=== PATIENT | male | born 1945 | race Caucasian/White ===

== ENCOUNTER 2016-08-29 17:24 | Emergency (ER) | payer MEDICARE, OTHER | END 2016-08-29 19:21 | disposition home or self-care (01) | DX: M25.461 Effusion, right knee (principal); M25.561 Pain in right knee; W17.2XXA Fall into hole, initial encounter; Y93.89 Activity, other specified; Y92.89 Other specified places as the place of occurrence of the external cause; Y99.8 Other external cause status; M17.11 Unilateral primary osteoarthritis, right knee ==

== ENCOUNTER 2016-09-10 10:53 | Outpatient (CLI) | payer MEDICARE, OTHER | END 2016-09-10 10:54 | disposition home or self-care (01) | DX: S83.211A Bucket-handle tear of medial meniscus, current injury, right knee, initial encounter (principal); S83.261A Peripheral tear of lateral meniscus, current injury, right knee, initial encounter; S83.411A Sprain of medial collateral ligament of right knee, initial encounter; M17.11 Unilateral primary osteoarthritis, right knee; M25.461 Effusion, right knee ==

== ENCOUNTER → 2017-07-20 | Outpatient (CLI) | payer MEDICARE, OTHER ==
[2017-07-20 13:38] LABS: BASOPHILS % (AUTO) 0.8 %; EOSINOPHILS # (AUTO) 0.1 10^3/uL (0.0-0.7); EOSINOPHILS % (AUTO) 2.4 %; HCT - HEMATOCRIT 48.3 % (42.0-52.0); HGB - HEMOGLOBIN 16.1 g/dL (14.0-18.0); LYMPHOCYTES % (AUTO) 21.2 %; MEAN CORPUSCULAR HGB CONC 33.4 g/dL (32.0-36.0); MEAN CORPUSCULAR VOLUME 86.8 fL (80.0-94.0); MEAN PLATELET VOLUME 7.6 fL (7.4-11.4); MONOCYTES # (AUTO) 0.5 10^3/uL (0.0-1.0); MONOCYTES % (AUTO) 9.8 %; NEUTROPHILS # (AUTO) 3.1 10^3/uL (1.5-6.6); NEUTROPHILS % (AUTO) 65.8 %; NUCLEATED RED BLOOD CELLS AUTO 0.1 /100WBC; RED BLOOD COUNT 5.57 10^6/uL (4.70-6.10); RED CELL DISTRIBUTION WIDTH 14.2 % (12.0-15.0); UNCORRECTED WHITE BLOOD COUNT 4.7 x10^3/uL; WHITE BLOOD COUNT 4.7 x10^3/uL (4.8-10.8)
[2017-07-20 14:08] LABS: ALBUMIN/GLOBULIN RATIO 1.3 (1.0-2.2); BILIRUBIN,TOTAL 1.3 mg/dL (0.2-1.0); BUN - BLOOD UREA NITROGEN 21 mg/dL (6-20); CALCIUM 9.3 mg/dL (8.5-10.3); CARBON DIOXIDE - CO2 28 mmol/L (21-32); CHLORIDE 103 mmol/L (101-111); CHOL/HDL RATIO 5.4 (<5.0); CHOLESTEROL 185 mg/dL; CREATININE 1.1 mg/dL (0.6-1.2); GFR - MDRD 66 (>89); GLUCOSE 78 mg/dL (70-100); HDL CHOLESTEROL 34 mg/dL; LDL/HDL RATIO 3.2 (<3.6); POTASSIUM 4.3 mmol/L (3.5-5.0); SODIUM 140 mmol/L (135-145); TOTAL PROTEIN 7.4 g/dL (6.7-8.2); TRIGLYCERIDES 215 mg/dL; VLDL CHOLESTEROL 43 mg/dL
== END ==
LOC: LAB.R 09:09
PROVIDERS: ATTEND Internal Medicine
DX: K58.9 Irritable bowel syndrome, unspecified (principal); I75.029 Atheroembolism of unspecified lower extremity; E78.5 Hyperlipidemia, unspecified; R03.0 Elevated blood-pressure reading, without diagnosis of hypertension; Z72.89 Other problems related to lifestyle
CPT/HCPCS: 80053; 80061; 85025; 86803

== ENCOUNTER 2018-08-02 17:16 | Outpatient (CLI) | payer MEDICARE ==
--- NOTE | 2018-08-03 09:27 | XRAY Report ---
Reason: RIB PAIN, LEFT SIDED Procedure Date: 08/02/2018 Accession Number: [id number] / [id number] Procedure: XR - Ribs w/PA Chest LT CPT Code: FULL RESULT: EXAM: LEFT RIB RADIOGRAPHY EXAM DATE: 08/02/2018 05:16 PM. CLINICAL HISTORY: Rib pain, left-sided. COMPARISON: None. TECHNIQUE: 1 view of the chest and 2 views of the ribs. FINDINGS: Bones: Normal. No fracture or bone lesion. Lungs: No focal opacities. No pneumothorax. No pleural effusions. Mediastinum: Heart and mediastinal contours are unremarkable. Other: No finding is made in the region marked with a BB. IMPRESSION: Normal chest and rib radiography. RADIA
== END 2018-08-02 23:59 | disposition home or self-care (01) ==
LOC: DI 17:16
PROVIDERS: ATTEND Internal Medicine
DX: R07.81 Pleurodynia (principal)

== ENCOUNTER 2019-02-05 16:27 | Emergency (ER) | payer MEDICARE ==
--- NOTE | 2019-02-05 16:59 | ED Physician Documentation ---
PD HPI FOCAL NEURO - Stated complaint Stated Complaint: LT SIDE OF FACE AND ARM NUMB - Chief complaint Chief Complaint: Neuro - History obtained from History obtained from: Patient - History of Present Illness Timing - onset: Today (The patient awoke this morning at 4 AM with a feeling of left sided headache and states he had a feeling of "a waterfall rushing through my head" on the left side. He noticed a feeling of numbness in the left face and the left arm. He felt slightly weak on the left arm. He denied any visual changes. He denied any trouble speaking. He is continued with some of the feeling of numbness in the left arm and face through the day. Headache is been wafting through the day. He denies any injury. He denies any head cold symptoms. He has not had any prior similar episodes.) Timing - duration: Days (08/22) Timing - details: Abrupt onset, Still present Severity of deficit: Moderate Weakness: No: Face, Arm, Hand, Leg Numbness: Face, Arm, Hand, Left. No: Leg Associated symptoms: Headache (left sided temporal area and side of face as well), Nausea / vomiting, Neck pain. No: Seizure, Syncope, Head injury, Back pain Contributing factors: negative: Anticoagulated, Vascular dz Baseline status: positive: A&OX3, ambulatory, indep Similar symptoms before: Has not had sx before Recently seen: Not recently seen Review of Systems Constitutional: denies: Fever, Chills, Myalgias Ears: denies: Loss of hearing, Ear pain, Drainage/discharge Nose: denies: Rhinorrhea / runny nose, Congestion Throat: denies: Sore throat Cardiac: denies: Chest pain / pressure, Palpitations Respiratory: denies: Dyspnea, Cough GI: denies: Abdominal Pain, Nausea, Vomiting, Diarrhea Skin: denies: Rash, Lesions Neurologic: reports: Numbness. denies: Generalized weakness, Focal weakness, Near syncope, Confused, Headache, Head injury PD PAST MEDICAL HISTORY - Past Medical History Cardiovascular: None Respiratory: None Neuro: None Endocrine/Autoimmune: None - Allergies Allergies/Adverse Reactions: Allergies Allergy/AdvReac Type Severity Reaction Status Date / Time Penicillins Allergy Hives Verified 02/05/19 16:32 - Social History Does the pt smoke?: No Smoking Status: Never smoker - Family History Family history: reports: CVA PD ED PE NORMAL - Vitals Vital signs reviewed: Yes - General General: Alert and oriented X 3, No acute distress, Well developed/nourished - HEENT HEENT: Pharynx benign - Neck Neck: Supple, no meningeal sign, No adenopathy - Cardiac Cardiac: RRR, No murmur - Respiratory Respiratory: Clear bilaterally - Abdomen Abdomen: Soft, Non tender - Derm Derm: Normal color, Warm and dry - Extremities Extremities: No deformity, No tenderness to palpate, Normal ROM s pain, No edema, No calf tenderness / cord - Neuro Neuro: Alert and oriented X 3, shrimp trawler 2-12 intact, No motor deficit, No sensory deficit, Normal speech Eye Opening: Spontaneous Motor: Obeys Commands Verbal: Oriented GCS Score: 15 - Psych Psych: Normal mood NIHSS - Level of Consciousness Level of consciousness: (0) Alert, Keenly responsive LOC Questions: (0) Answers both Q's correct LOC Commands: (0) Performs both correctly - Gaze Best Gaze: (0) Normal - Visual Visual: (0) No loss - Facial Palsy Facial Palsy: (0) Normal, symmetrical movement - Motor Arms (both separate) Motor Arm (right): (0) No drift Motor Arm (left): (1) Drift - Motor Legs (both separate) Motor Leg (right): (0) No drift Motor Leg (left): (0) No drift - Limb Ataxia Limb Ataxia: (0) Absent - Sensory Sensory: (1) Vaoh-hh-whunkxst loss (left face and arm) - Best Language Best Language: (0) No aphasia - Dysarthria Dysarthria: (0) Normal - Extinction and Inattention (formally neg Extinction and inattention: (0) No abnormality - Total Score/Results Total Score/Result: 2 Results - Vitals Vitals: Vital Signs - 24 hr 02/05/19 02/05/19 02/05/19 16:30 17:00 17:09 Temperature 36.6 C Heart Rate 61 56 L Respiratory 18 10 L 18 Rate Blood Pressure 175/86 H 150/87 H O2 Saturation 98 96 02/05/19 02/05/19 18:03 20:06 Temperature 36.5 C Heart Rate 59 L 61 Respiratory 11 L 12 Rate Blood Pressure 166/86 H 178/96 H O2 Saturation 100 98 Oxygen O2 Source Room air - Labs Labs: Laboratory Tests 02/05/19 02/05/19 02/05/19 17:23 17:23 17:23 WBC 5.0 RBC 5.40 Hgb 15.4 Hct 47.7 MCV 88.3 MCH 28.5 MCHC 32.3 RDW 13.4 Plt Count 163 MPV 9.0 Neut # (Auto) 3.0 Lymph # (Auto) 1.[address] [place] # (Auto) 0.6 Eos # (Auto) 0.2 Baso # (Auto) 0.0 Absolute Nucleated RBC 0.00 Nucleated RBC % 0.0 ESR 3 Sodium 139 Potassium 4.1 Chloride 106 Carbon Dioxide 23 Anion Gap 10.0 BUN 14 Creatinine 0.9 Estimated GFR (MDRD) 83 L Glucose 117 H Calcium 8.8 Magnesium 2.3 Total Bilirubin 0.8 AST 13 ALT 20 Alkaline Phosphatase 79 Total Protein 7.2 Albumin 4.0 Globulin 3.2 Albumin/Globulin Ratio 1.3 Lipase 32 - Rads (name of study) head CT Radiology: Prelim report reviewed, Discussed with rads (no acute process) head/neck angio Radiology: Prelim report reviewed, Discussed with rads (no acute process; no significant stenoses (50% or so)) PD MEDICAL DECISION MAKING - ED course Complexity details: re-evaluated patient (he is feeling better regarding headache and his numbness is improved. He wants to go home. I talked with him about MRI for further eval and neuro checks overnight. He declines and wishes to be discharged. ), considered differential (left headache and left arm/face numbness without weakness. Consider small CVA or lacune type vs vascular headache like migraine. Given meds for headache. ), d/w patient Departure - Departure Disposition: 01 Home, Self Care Clinical Impression: Left-sided headache, Lt facial numbness Condition: Stable Record reviewed to determine appropriate education?: Yes Instructions: ED Cephalgia Unspecified Follow-Up: Pee Hyatt MD [Primary Care Provider] - Comments: Aspirin daily. Tylenol ibuprofen if needed for headache and pains. Is not cl ear the cause of your headache and facial and arm numbness at this time. No signs of bleeding or aneurysms or tumors on CT scan. It does not sound as much strokelike per se. It may be a migraine or other similar headache. An MRI would be a bit more accurate to detect small stroke or such. Follow-up with your primary care if not fully improved over the next couple of days. Return if worsening. Discharge Date/Time: 02/05/19 20:12
[2019-02-05] MEDS ORDERED: SODIUM CHLORIDE 0.9% 1,000 ML IV ONE (17:14)
[2019-02-05] MEDS ORDERED: ONDANSETRON 4 MG/2 ML VIAL IVP STA (17:16)
[2019-02-05] MEDS ORDERED: MORPHINE 2 MG/ML CARPUJECT IVP STA (17:16)
[2019-02-05] MEDS ORDERED: IOVERSOL 320 100 ML VIAL IVP ONE ×3 (17:31→18:29)
[2019-02-05 17:52] LABS: BASOPHILS % (AUTO) 0.8 %; EOSINOPHILS # (AUTO) 0.2 10^3/uL (0.0-0.7); EOSINOPHILS % (AUTO) 4.6 %; HGB - HEMOGLOBIN 15.4 g/dL (14.0-18.0); LYMPHOCYTES # (AUTO) 1.1 10^3/uL (1.5-3.5); LYMPHOCYTES % (AUTO) 22.4 %; MEAN CORPUSCULAR HEMOGLOBIN 28.5 pg (27.0-31.0); MEAN CORPUSCULAR HGB CONC 32.3 g/dL (32.0-36.0); MEAN CORPUSCULAR VOLUME 88.3 fL (80.0-94.0); MONOCYTES # (AUTO) 0.6 10^3/uL (0.0-1.0); MONOCYTES % (AUTO) 11.1 %; NEUTROPHILS % (AUTO) 60.7 %; PLT - PLATELET COUNT 163 10^3/uL (130-450); RED CELL DISTRIBUTION WIDTH 13.4 % (12.0-15.0)
[2019-02-05 17:54] LABS: ALBUMIN/GLOBULIN RATIO 1.3 (1.0-2.2); BILIRUBIN,TOTAL 0.8 mg/dL (0.2-1.0); CALCIUM 8.8 mg/dL (8.5-10.3); CREATININE 0.9 mg/dL (0.6-1.2); MAGNESIUM 2.3 mg/dL (1.7-2.8); TOTAL PROTEIN 7.2 g/dL (6.7-8.2)
--- NOTE | 2019-02-05 17:58 | CT Report ---
Reason: left headache and left arm numbness Procedure Date: 02/05/2019 Accession Number: [id number] / [id number] Procedure: CT - Head W/O Stroke Protocol CPT Code: FULL RESULT: EXAM: CT HEAD EXAM DATE: 02/05/2019 05:45 PM. CLINICAL HISTORY: Left headache and left arm numbness. COMPARISON: None. TECHNIQUE: Multiaxial CT images were obtained from the foramen magnum to the vertex. Reformats: Sagittal and coronal. IV contrast: None. In accordance with CT protocol optimization, one or more of the following dose reduction techniques were utilized for this exam: automated exposure control, adjustment of mA and/or KV based on patient size, or use of iterative reconstructive technique. FINDINGS: Parenchyma: No intraparenchymal hemorrhage. No evidence of mass, midline shift, or CT findings of acute infarction. Ramirez-white differentiation is distinct. Extraaxial Spaces: Normal for age. No subdural or epidural collections identified. Ventricles: Normal in size and position. Sinuses and Orbits: Imaged paranasal sinuses, orbits, and mastoids show no significant abnormality. Bones: No evidence of fracture or calvarial defect. Other: None. IMPRESSION: Normal head CT. RADIA The above critical test findings were discussed with Lisandro Rico by Dr. Blaine Kelley at 05:57 PM on 02/05/2019.
--- NOTE | 2019-02-05 18:29 | CT Report ---
Reason: L arm numbness, L neck pain/LONG Procedure Date: 02/05/2019 Accession Number: [id number] / [id number] Procedure: CT - ANGIO NECK W/WO CPT Code: FULL RESULT: EXAM: CT ANGIOGRAM HEAD AND NECK. EXAM DATE: 02/05/2019 06:09 PM. CLINICAL HISTORY: 73-year-old presenting with left-sided headache and left arm numbness. Evaluate for intracranial pathology. COMPARISON: Noncontrast CT head 02/05/2019. TECHNIQUE: Routine axial helical CTA imaging was performed from the aortic arch through the [place]. Reconstructions: Routine multiplanar 3D MIP reconstructions. IV contrast: 80 cc Optiray 320. NASCET Criteria are used for stenosis measurements. In accordance with CT protocol optimization, one or more of the following dose reduction techniques were utilized for this exam: automated exposure control, adjustment of mA and/or KV based on patient size, or use of iterative reconstructive technique. FINDINGS: CT ANGIOGRAM HEAD AND NECK: There is minimal atherosclerotic plaque involving the aortic arch. The left common carotid artery arises from the right brachiocephalic artery. Visually, subclavian arteries appear patent. RIGHT: Common Carotid Artery: Patent without significant stenosis. Carotid Bulb: There is mild atherosclerotic plaque at the bifurcation and siphon. Stenosis at the bifurcation by NASCET criteria: No significant stenosis. Internal Carotid Artery: The cervical ICA appears patent with no high-grade stenosis or definite dissection seen. Minimal atherosclerotic aortic plaque involving the cavernous ICA segment with no high-grade stenosis seen. No evidence of aneurysm along the intracranial ICA. External Carotid Artery: Unremarkable. Vertebral Artery: Patent without significant stenosis. No evidence of dissection. No aneurysm. Anterior Cerebral Artery: Patent without significant stenosis, aneurysm, or vascular malformation. Middle Cerebral Artery: Patent without significant stenosis, aneurysm, or vascular malformation. Posterior Cerebral Artery: Patent without significant stenosis, aneurysm, or vascular malformation. Posterior Communicating Artery: Patent. No aneurysm. LEFT: Common Carotid Artery: Patent without significant stenosis. Carotid Bulb: There is mild atherosclerotic plaque at the bifurcation and siphon. Stenosis at the bifurcation by NASCET criteria: No significant stenosis. Internal Carotid Artery: The cervical ICA appears patent with no high-grade stenosis or definite dissection seen. Minimal atherosclerotic aortic plaque involving the cavernous ICA segment with no high-grade stenosis seen. No evidence of aneurysm along the intracranial ICA. External Carotid Artery: Unremarkable. Vertebral Artery: There is atherosclerotic aortic plaque involving the origin of the left vertebral artery with between 70-80% stenosis. Anterior Cerebral Artery: Patent without significant stenosis, aneurysm, or vascular malformation. Middle Cerebral Artery: Patent without significant stenosis, aneurysm, or vascular malformation. Posterior Cerebral Artery: Patent without significant stenosis, aneurysm, or vascular malformation. Posterior Communicating Artery: Patent. No aneurysm. CENTRAL: Anterior Communicating Artery: Patent. No aneurysm. Basilar Artery: Patent without significant stenosis. No aneurysm. DURAL VENOUS SINUSES AND MAJOR CENTRAL VEINS: Patent. OTHER: The visualized pharynx and larynx appear normal. Major salivary glands appear normal. Thyroid gland appears normal. No cervical lymphadenopathy or necrotic lymph nodes seen. Soft tissues of the neck appear normal. Pleural parenchymal scarring of the visualized lung apices with dependent atelectatic changes. No acute fracture or traumatic subluxation of the cervical spine. Multilevel degenerative changes. No suspicious osseous lesion. IMPRESSION: CT ANGIOGRAM NECK: 1. There is atherosclerotic plaque involving the origin of the left vertebral artery with between 70-80% stenosis. 2. Otherwise, the arteries of the neck appear patent with no definite additional high-grade stenosis or definite dissection seen. CT ANGIOGRAM HEAD: 1. No large vessel occlusion. 2. No aneurysm. No significant stenosis. RADIA The call report notification system was initiated by Dr. Barry Silva at 06:28 PM on 02/05/2019. The above call report findings were discussed with Lisandro Rico by Dr. Barry Silva at 06:31 PM on 02/05/2019.
--- NOTE | 2019-02-05 18:29 | CT Report ---
Reason: left headache and left arm numbness Procedure Date: 02/05/2019 Accession Number: [id number] / [id number] Procedure: CT - ANGIO HEAD W CPT Code: FULL RESULT: EXAM: CT ANGIOGRAM HEAD AND NECK. EXAM DATE: 02/05/2019 06:09 PM. CLINICAL HISTORY: 73-year-old presenting with left-sided headache and left arm numbness. Evaluate for intracranial pathology. COMPARISON: Noncontrast CT head 02/05/2019. TECHNIQUE: Routine axial helical CTA imaging was performed from the aortic arch through the [place]. Reconstructions: Routine multiplanar 3D MIP reconstructions. IV contrast: 80 cc Optiray 320. NASCET Criteria are used for stenosis measurements. In accordance with CT protocol optimization, one or more of the following dose reduction techniques were utilized for this exam: automated exposure control, adjustment of mA and/or KV based on patient size, or use of iterative reconstructive technique. FINDINGS: CT ANGIOGRAM HEAD AND NECK: There is minimal atherosclerotic plaque involving the aortic arch. The left common carotid artery arises from the right brachiocephalic artery. Visually, subclavian arteries appear patent. RIGHT: Common Carotid Artery: Patent without significant stenosis. Carotid Bulb: There is mild atherosclerotic plaque at the bifurcation and siphon. Stenosis at the bifurcation by NASCET criteria: No significant stenosis. Internal Carotid Artery: The cervical ICA appears patent with no high-grade stenosis or definite dissection seen. Minimal atherosclerotic aortic plaque involving the cavernous ICA segment with no high-grade stenosis seen. No evidence of aneurysm along the intracranial ICA. External Carotid Artery: Unremarkable. Vertebral Artery: Patent without significant stenosis. No evidence of dissection. No aneurysm. Anterior Cerebral Artery: Patent without significant stenosis, aneurysm, or vascular malformation. Middle Cerebral Artery: Patent without significant stenosis, aneurysm, or vascular malformation. Posterior Cerebral Artery: Patent without significant stenosis, aneurysm, or vascular malformation. Posterior Communicating Artery: Patent. No aneurysm. LEFT: Common Carotid Artery: Patent without significant stenosis. Carotid Bulb: There is mild atherosclerotic plaque at the bifurcation and siphon. Stenosis at the bifurcation by NASCET criteria: No significant stenosis. Internal Carotid Artery: The cervical ICA appears patent with no high-grade stenosis or definite dissection seen. Minimal atherosclerotic aortic plaque involving the cavernous ICA segment with no high-grade stenosis seen. No evidence of aneurysm along the intracranial ICA. External Carotid Artery: Unremarkable. Vertebral Artery: There is atherosclerotic aortic plaque involving the origin of the left vertebral artery with between 70-80% stenosis. Anterior Cerebral Artery: Patent without significant stenosis, aneurysm, or vascular malformation. Middle Cerebral Artery: Patent without significant stenosis, aneurysm, or vascular malformation. Posterior Cerebral Artery: Patent without significant stenosis, aneurysm, or vascular malformation. Posterior Communicating Artery: Patent. No aneurysm. CENTRAL: Anterior Communicating Artery: Patent. No aneurysm. Basilar Artery: Patent without significant stenosis. No aneurysm. DURAL VENOUS SINUSES AND MAJOR CENTRAL VEINS: Patent. OTHER: The visualized pharynx and larynx appear normal. Major salivary glands appear normal. Thyroid gland appears normal. No cervical lymphadenopathy or necrotic lymph nodes seen. Soft tissues of the neck appear normal. Pleural parenchymal scarring of the visualized lung apices with dependent atelectatic changes. No acute fracture or traumatic subluxation of the cervical spine. Multilevel degenerative changes. No suspicious osseous lesion. IMPRESSION: CT ANGIOGRAM NECK: 1. There is atherosclerotic plaque involving the origin of the left vertebral artery with between 70-80% stenosis. 2. Otherwise, the arteries of the neck appear patent with no definite additional high-grade stenosis or definite dissection seen. CT ANGIOGRAM HEAD: 1. No large vessel occlusion. 2. No aneurysm. No significant stenosis. RADIA The call report notification system was initiated by Dr. Barry Silva at 06:28 PM on 02/05/2019. The above call report findings were discussed with Lisandro Rico by Dr. Barry Silva at 06:31 PM on 02/05/2019.
[2019-02-05] MEDS ORDERED: DEXAMETHASONE 10 MG/ML VIAL PO STA (19:38)
[2019-02-05] MEDS ORDERED: CHERRY SYRUP 10 ML UDC PO ONE (19:38)
[2019-02-05 20:07] VITALS: BP 178/96
== END 2019-02-05 20:12 | disposition home or self-care (01) ==
LOC: ED 16:27
DX: R51 Headache (principal); R20.0 Anesthesia of skin; R29.702 NIHSS score 2; Z82.3 Family history of stroke
CPT/HCPCS: 36415; 70450; 70496; 70498; 80053; 83690; 83735; 85025; 85651; 93005; 96360; 99283; 99284; A9270; Q9967

== ENCOUNTER 2019-02-11 16:46 | Outpatient (CLI) | payer MEDICARE ==
--- NOTE | 2019-02-12 08:44 | MRI Report ---
Reason: HEADACHE,CERVICAL Procedure Date: 02/11/2019 Accession Number: [id number] / [id number] Procedure: MRI - Brain W/O CPT Code: FULL RESULT: EXAM: MRI BRAIN WITHOUT CONTRAST EXAM DATE: 02/11/2019 05:08 PM. CLINICAL HISTORY: Headache and neck pain. Recent report of left arm numbness. COMPARISON: No previous brain MRI. TECHNIQUE: Multiplanar, multisequence T1-weighted and fluid-sensitive MR sequences of the brain were performed. Sequences optimized for routine evaluation. Other: None. IV Contrast: None. FINDINGS: Brain Volume: Normal for age. Parenchyma/Dura: No restricted diffusion to suggest acute or recent ischemic infarct. No cerebral hemorrhage, mass-effect, midline shift or abnormal subdural fluid collection. Mild multifocal cerebral white matter T2 hyperintense signal changes. These findings are nonspecific but most consistent with changes of aging and mild chronic microangiopathy. Ventricles/Cisterns: No hydrocephalus. No abnormal extra-axial fluid collection or hemorrhage. Orbits: Symmetric and unremarkable. Sella [place]: No space-occupying mass. IAC: Grossly symmetric and unremarkable allowing for the inherent limitations of noncontrast imaging technique. Vasculature: Normal signal flow void is seen in the major arterial structures at the skull base. Sinuses: Mild multifocal paranasal sinus mucosal thickening, mostly ethmoid and maxillary. Bones: No focal pathologic appearing marrow signal changes. Other: None. IMPRESSION: Mild chronic-appearing changes of aging. No acute abnormality. Mild paranasal sinus mucosal thickening. RADIA
--- NOTE | 2019-02-12 09:42 | MRI Report ---
Reason: HEADACHE,CERVICAL Procedure Date: 02/11/2019 Accession Number: [id number] / [id number] Procedure: MRI - Cervical Spine W/O CPT Code: FULL RESULT: EXAM: MRI CERVICAL SPINE WITHOUT CONTRAST EXAM DATE: 02/11/2019 05:44 PM. CLINICAL HISTORY: Headache and neck pain. COMPARISONS: No prior cervical spine MRI. TECHNIQUE: Multiplanar, multisequence T1-weighted and fluid-sensitive sequences of the cervical spine without contrast. Other: None. FINDINGS: Neurologic Structures: The visualized posterior fossa structures are unremarkable. No focal cervical cord signal abnormality. Alignment: No scoliosis or focal subluxation. Bone Marrow: Cervical vertebral body heights are maintained. No acute marrow edema. Interspace Levels/Facets: C1-C2: Unremarkable. C2-C3: Mild to moderate facet arthropathy. Minimally narrowed disk space. No central stenosis or focal disk extrusion. Patent foramina. C3-C4: Mild disk degeneration. Minimal central stenosis. Shallow midline posterior disk protrusion. Minimal to mild right and mild to moderate left side facet arthropathy. Mild bilateral uncinate process spurring and hypertrophy. Mild to moderate right and moderate to severe left bony foraminal stenosis. C4-C5: Moderate disk degeneration. Mild central stenosis. Broad-based posterior disk bulge. Ventral thecal sac effacement. Minimal if any ventral cord flattening by disk. Left greater than right uncinate process spurring and facet arthropathy. Foraminal stenosis is mild to moderate on the right and moderate to severe on the left. C5-C6: Moderate disk degeneration. Mild to moderate central stenosis. Broad-based posterior disk bulge with mild marginal osteophytic spurring, disk/osteophyte complex is eccentric to the left. Minimal facet arthropathy. Uncinate process spurring and hypertrophy is present on the left. Patent right neural foramen. Moderate to severe bony foraminal stenosis on the left. C6-C7: Moderate disk degeneration. Left greater than right uncinate process spurring and hypertrophy. Essentially unremarkable facets. Mild central stenosis anteriorly on the left. Mild to moderate left lateral recess stenosis. Foraminal stenosis is minimal on the right but at least moderate on the left. C7-T1: Minimal disk degeneration. Patent central canal. No focal disk herniation. Foraminal stenosis from uncinate process hypertrophy is minimal to mild on the right and mild to moderate on the left. Musculature: No acute edema. Mild diffuse fatty atrophy. Other: No focal prevertebral soft tissue thickening. IMPRESSION: 1. Moderately prominent chronic multilevel hypertrophic degenerative cervical spinal spondylosis. 2. No focal spinal cord signal abnormality. 3. Central canal stenosis at multiple levels, most prominent at C4-C5 and left greater than right at C5-C6 where there is also left lateral recess stenosis. 4. Chronic-appearing degenerative bony foraminal stenosis at multiple cervical levels, especially on the left at C3-C4 through C6-C7. 5. Disk degeneration is associated with posterior degenerative disk/osteophyte complexes at multiple levels, but there is no evidence for acute or focal extruded disk fragment. RADIA
== END 2019-02-11 16:47 | disposition home or self-care (01) ==
LOC: DI 16:46
PROVIDERS: ATTEND Family Medicine
DX: R51 Headache (principal); M47.812 Spondylosis without myelopathy or radiculopathy, cervical region; M50.21 Other cervical disc displacement, high cervical region; M48.02 Spinal stenosis, cervical region
CPT/HCPCS: 70551; 72141

== ENCOUNTER 2020-11-09 08:00 | Outpatient (CLI) | payer MEDICARE ==
[2020-11-09 11:33] LABS: BASOPHILS % (AUTO) 0.6 %; EOSINOPHILS # (AUTO) 0.2 10^3/uL (0.0-0.7); EOSINOPHILS % (AUTO) 3.7 %; HCT - HEMATOCRIT 51.9 % (42.0-52.0); HGB - HEMOGLOBIN 16.9 g/dL (14.0-18.0); LYMPHOCYTES # (AUTO) 1.1 10^3/uL (1.5-3.5); LYMPHOCYTES % (AUTO) 22.5 %; MEAN CORPUSCULAR HEMOGLOBIN 29.2 pg (27.0-31.0); MEAN CORPUSCULAR HGB CONC 32.6 g/dL (32.0-36.0); MEAN CORPUSCULAR VOLUME 89.8 fL (80.0-94.0); MEAN PLATELET VOLUME 9.9 fL (7.4-11.4); MONOCYTES # (AUTO) 0.4 10^3/uL (0.0-1.0); MONOCYTES % (AUTO) 8.7 %; NEUTROPHILS # (AUTO) 3.1 10^3/uL (1.5-6.6); NEUTROPHILS % (AUTO) 64.1 %; PLT - PLATELET COUNT 163 10^3/uL (130-450); RED BLOOD COUNT 5.78 10^6/uL (4.70-6.10); RED CELL DISTRIBUTION WIDTH 13.2 % (12.0-15.0); WHITE BLOOD COUNT 4.8 x10^3/uL (4.8-10.8)
[2020-11-09 12:34] LABS: ALBUMIN 4.5 g/dL (3.2-5.5); ALBUMIN/GLOBULIN RATIO 1.6 (1.0-2.2); BILIRUBIN,TOTAL 1.2 mg/dL (0.2-1.0); CALCIUM 9.3 mg/dL (8.5-10.3); CREATININE 0.9 mg/dL (0.6-1.2); POTASSIUM 4.2 mmol/L (3.5-5.0); TOTAL PROTEIN 7.4 g/dL (6.7-8.2)
[2020-11-09 12:38] LABS: THYROID STIMULATING HORMONE 3.27 uIU/mL (0.34-5.60)
== END 2020-11-09 23:59 | disposition home or self-care (01) ==
LOC: LAB.WCP 08:00
PROVIDERS: ATTEND Family Medicine
DX: R10.814 Left lower quadrant abdominal tenderness (principal); K52.9 Noninfective gastroenteritis and colitis, unspecified
CPT/HCPCS: 36415; 80053; 84443; 85025

== ENCOUNTER 2020-12-09 08:59 | Outpatient (CLI) | payer MEDICARE ==
--- NOTE | 2020-12-09 14:39 | XRAY Report ---
PROCEDURE: Chest 2 View X-Ray INDICATIONS: WHEEZING TECHNIQUE: 2 view(s) of the chest. COMPARISON: None. FINDINGS: Surgical changes and devices: None. Lungs and pleura: No pleural effusions or pneumothorax. Lungs are clear. Mediastinum: Mediastinal contours are normal. Heart size is normal. Bones and chest wall: No suspicious bony abnormalities. Soft tissues appear unremarkable. IMPRESSION: Chest without acute cardiopulmonary abnormalities. No focal airspace disease. Reviewed by: Daron Eubanks MD on 12/09/2020 1:37 PM MCKENNA Approved by: Daron Eubanks MD on 12/09/2020 1:37 PM AKDT Station ID: [id number]
== END 2020-12-09 09:00 | disposition home or self-care (01) ==
LOC: DI 08:59
PROVIDERS: ATTEND Family Medicine
DX: R06.2 Wheezing (principal)

== ENCOUNTER 2020-12-24 09:43 | Outpatient (CLI) | payer MEDICARE ==
[2020-12-24] MEDS ORDERED: IOPAMIDOL-300 100 ML VIAL ONE (09:49)
[2020-12-24] MEDS ORDERED: IOPAMIDOL-300 50 ML VIAL ONE (09:49)
[2020-12-24 10:19] LABS: CREATININE 0.9 mg/dL (0.6-1.2)
[2020-12-24] MEDS ORDERED: IOPAMIDOL-300 100 ML VIAL IVP ONE (11:11)
[2020-12-24] MEDS ORDERED: IOPAMIDOL-300 50 ML VIAL PO ONE (11:11)
--- NOTE | 2020-12-24 11:26 | CT Report ---
PROCEDURE: Abdomen/Pelvis W INDICATIONS: COLITIS CONTRAST: IV CONTRAST: Isovue 300 ml: 100 PO CONTRAST: Isovue 300 ml50 TECHNIQUE: After the administration of nonionic contrast, 5 mm thick sections acquired from the diaphragms to th e symphysis. 5 mm thick coronal and sagittal reformats were acquired. For radiation dose reduction, the following was used: automated exposure control, adjustment of mA and/or kV according to patient size. COMPARISON: 08/12/2015 abdomen/pelvis CT. FINDINGS: Image quality: Excellent. ABDOMEN: Lung bases: Lung bases are clear. Heart size is normal. Solid organs: Liver and spleen are normal in size and enhancement. Gallbladder appears normal Bili rebeka system is non dilated. Pancreas enhances normally. No adrenal nodules. Kidneys demonstrate nor mal size and enhancement, without hydronephrosis. Peritoneum and bowel: Bowel loops demonstrate normal wall thickness and caliber. No free fluid or a ir. Moderate colonic obstipation on the right and left, within the abdomen and pelvis. Nodes and vessels: No retroperitoneal or mesenteric adenopathy by size criteria. Aorta and inferior vena cava are normal in size. Miscellaneous: No ventral hernias. PELVIS: Genitourinary: Bladder wall thickness is normal. Miscellaneous: No inguinal hernias or adenopathy. Colonic obstipation. Bones: No suspicious bony lesions. No vertebral body compression fractures. IMPRESSION: There is moderate colonic obstipation on the right and left, within the abdomen and pelv is, but no sign of inflammation of the colon wall or development of diverticulitis. Reviewed by: Alex Robles MD on 12/24/2020 11:25 AM PDT Approved by: Alex Robles MD on 12/24/2020 11:25 AM PDT Station ID: [id number]
== END 2020-12-24 09:44 | disposition home or self-care (01) ==
LOC: LAB 09:43 → DI 09:44
PROVIDERS: ATTEND Family Medicine
DX: K52.9 Noninfective gastroenteritis and colitis, unspecified (principal); K59.00 Constipation, unspecified; Z91.041 Radiographic dye allergy status
CPT/HCPCS: 36415; 74177; 82565; Q9967

== ENCOUNTER 2021-01-20 09:55 | Day surgery (SDC) | payer MEDICARE ==
[2021-01-20] MEDS ORDERED: LACTATED RINGERS 1,000 ML IV ONE ×2 (10:20→12:33)
[2021-01-20] MEDS ORDERED: fentaNYL 250 MCG/5 ML VIAL ONE (11:49)
[2021-01-20] MEDS ORDERED: MIDAZOLAM 2 MG/2 ML VIAL ONE ×2 (11:49→11:59)
[2021-01-20 12:47] VITALS: BP 103/53
== END 2021-01-20 09:56 | disposition home or self-care (01) ==
LOC: SDS 09:55
PROVIDERS: ATTEND Surgery
PROC: 0DBP8ZZ Excision of Rectum, Via Natural or Artificial Opening Endoscopic (ICD-10-PCS; principal; 2021-01-20 11:15)
DX: R10.32 Left lower quadrant pain (principal); K62.1 Rectal polyp
CPT/HCPCS: 45380; J3010; J7120

== ENCOUNTER 2022-01-12 10:56 | Outpatient (CLI) | payer MEDICARE ==
[2022-01-12 17:51] LABS: BASOPHILS % (AUTO) 0.7 %; EOSINOPHILS # (AUTO) 0.1 10^3/uL (0.0-0.7); EOSINOPHILS % (AUTO) 1.9 %; HCT - HEMATOCRIT 50.2 % (42.0-52.0); HGB - HEMOGLOBIN 16.2 g/dL (14.0-18.0); LYMPHOCYTES # (AUTO) 1.1 10^3/uL (1.5-3.5); LYMPHOCYTES % (AUTO) 19.2 %; MEAN CORPUSCULAR HEMOGLOBIN 29.3 pg (27.0-31.0); MEAN CORPUSCULAR HGB CONC 32.3 g/dL (32.0-36.0); MEAN CORPUSCULAR VOLUME 90.9 fL (80.0-94.0); MEAN PLATELET VOLUME 9.6 fL (7.4-11.4); MONOCYTES # (AUTO) 0.5 10^3/uL (0.0-1.0); PLT - PLATELET COUNT 185 10^3/uL (130-450); RED BLOOD COUNT 5.52 10^6/uL (4.70-6.10); RED CELL DISTRIBUTION WIDTH 13.6 % (12.0-15.0); WHITE BLOOD COUNT 5.8 x10^3/uL (4.8-10.8)
[2022-01-12 18:09] LABS: ALBUMIN 4.6 g/dL (3.2-5.5); ALBUMIN/GLOBULIN RATIO 1.6 (1.0-2.2); CALCIUM 9.1 mg/dL (8.5-10.3); CREATININE 0.9 mg/dL (0.6-1.2); POTASSIUM 4.7 mmol/L (3.5-5.0); TOTAL PROTEIN 7.5 g/dL (6.7-8.2)
[2022-01-12 18:26] LABS: THYROID STIMULATING HORMONE 2.86 uIU/mL (0.34-5.60)
[2022-01-12 18:31] LABS: FERRITIN 107.8 ng/mL (23.9-336.2)
== END 2022-01-12 10:57 | disposition home or self-care (01) ==
LOC: LAB.N 10:56
PROVIDERS: ATTEND Family Medicine
DX: R03.0 Elevated blood-pressure reading, without diagnosis of hypertension (principal); J45.909 Unspecified asthma, uncomplicated; R10.816 Epigastric abdominal tenderness; R79.89 Other specified abnormal findings of blood chemistry
CPT/HCPCS: 36415; 80053; 82728; 84443; 85025

== ENCOUNTER 2022-07-22 16:08 | Outpatient (CLI) | payer MEDICARE ==
[2022-07-22 16:44] LABS: BASOPHILS # (AUTO) 0.1 10^3/uL (0.0-0.1); BASOPHILS % (AUTO) 0.9 %; EOSINOPHILS # (AUTO) 0.1 10^3/uL (0.0-0.7); EOSINOPHILS % (AUTO) 2.3 %; HCT - HEMATOCRIT 51.2 % (42.0-52.0); HGB - HEMOGLOBIN 16.7 g/dL (14.0-18.0); LYMPHOCYTES # (AUTO) 1.5 10^3/uL (1.5-3.5); MEAN CORPUSCULAR HGB CONC 32.6 g/dL (32.0-36.0); MEAN PLATELET VOLUME 8.9 fL (7.4-11.4); MONOCYTES # (AUTO) 0.5 10^3/uL (0.0-1.0); MONOCYTES % (AUTO) 9.4 %; NEUTROPHILS # (AUTO) 3.2 10^3/uL (1.5-6.6); PLT - PLATELET COUNT 176 10^3/uL (130-450); RED BLOOD COUNT 5.75 10^6/uL (4.70-6.10); RED CELL DISTRIBUTION WIDTH 13.2 % (12.0-15.0); WHITE BLOOD COUNT 5.3 x10^3/uL (4.8-10.8)
[2022-07-22 16:59] LABS: ALBUMIN 4.4 g/dL (3.2-5.5); ALBUMIN/GLOBULIN RATIO 1.3 (1.0-2.2); BILIRUBIN,TOTAL 0.9 mg/dL (0.2-1.0); CREATININE 0.9 mg/dL (0.6-1.2); TOTAL PROTEIN 7.9 g/dL (6.7-8.2)
[2022-07-22 17:10] LABS: BILIRUBIN,URINE NEGATIVE (NEGATIVE); GLUCOSE, URINE (UA) NEGATIVE (NEGATIVE); KETONES,URINE (UA) NEGATIVE (NEGATIVE); LEUKOCYTE ESTERASE, URINE NEGATIVE (NEGATIVE); NITRITE,URINE NEGATIVE (NEGATIVE); OCCULT BLOOD,URINE NEGATIVE (NEGATIVE); PROTEIN,URINE NEGATIVE (NEGATIVE); UROBILINOGEN,URINE 0.2 (NORMAL) E.U./dL (NORMAL)
[2022-07-22 17:18] LABS: BACTERIA,URINE None Seen /HPF (None Seen); CLARITY,URINE CLEAR (CLEAR); RBC,URINE 0-5 /HPF (0-5); SQUAMOUS EPITHELIAL CELL,UR NONE SEEN (<= Few); WBC,URINE 0-3 /HPF (0-3)
--- NOTE | 2022-07-22 19:52 | XRAY Report ---
PROCEDURE: Thoracic Spine 3 View INDICATIONS: BACK PAIN THORACIC REGION TECHNIQUE: 3 views of the thoracic spine were acquired. COMPARISON: Chest radiographs 12/09/2020. FINDINGS: Bones: No fractures or dislocations. 12 pairs of ribs are noted, and appear intact where visualize d. Mild S-shaped curvature of the thoracic spine. Moderate multilevel degenerative changes present. Soft tissues: No paravertebral stripe thickening. IMPRESSION: No acute thoracic spine fracture visualized radiographically. If symptoms persist, CT or MRI may be h elpful for further evaluation. Reviewed by: Lalo Real MD on 07/22/2022 6:51 PM [facility] Approved by: Lalo Real MD on 07/22/2022 6:51 PM [facility] Station ID: [id number]
== END 2022-07-22 16:09 | disposition home or self-care (01) ==
LOC: DI 16:08
PROVIDERS: ATTEND Physician Assistant
DX: M54.6 Pain in thoracic spine (principal)
CPT/HCPCS: 36415; 80053; 81001; 83690; 85025; 87086

== ENCOUNTER 2023-05-08 07:20 | Emergency (ER) | payer MEDICARE ==
--- NOTE | 2023-05-08 07:33 | ED Physician Documentation ---
PD HPI SKIN - Stated complaint Stated Complaint: R ARM BITE - Chief complaint Chief Complaint: Wound - History obtained from History obtained from: Patient - History of Present Illness Timing - onset: Yesterday Timing - duration: Days (1) Timing - details: Gradual onset, Still present Location: RUE (he had been outside doing yard work and working with wood pile. No noted bite nor sting at the time. Has rounded area of tenderness and some redness into today. Concerned for insect bite, particularly deer tick per patient. No other symptoms except for some intermittent lightheadedness.) Quality / character: Burning, Swelling Associated symptoms: No: Fever, Myalgias Contributing factors: Insect bite /sting (he did not see insect and no abrupt pain like bee sting. Unclear the cause of the rash/spot.). No: Recent illness Review of Systems Constitutional: denies: Fever, Chills Neurologic: denies: Focal weakness, Numbness PD PAST MEDICAL HISTORY - Past Medical History Past Medical History: Yes Cardiovascular: None Respiratory: None Neuro: None Endocrine/Autoimmune: None GI: GERD : None HEENT: None Psych: None Musculoskeletal: None Derm: None - Past Surgical History Past Surgical History: Yes /[employer]: Endometrial ablation - Present Medications Home Medications: Ambulatory Orders Medication Instructions Recorded Confirmed Aspirin [Aspirin EC] 81 mg PO DAILY 01/19/21 05/08/23 Doxycycline Hyclate 100 mg PO BID 5 Days #10 cap 05/08/23 - Allergies Allergies/Adverse Reactions: Allergies Allergy/AdvReac Type Severity Reaction Status Date / Time Penicillins Allergy Hives Verified 05/08/23 07:25 - Social History Does the pt smoke?: No Smoking Status: Never smoker Does the pt drink ETOH?: Yes Does the pt have substance abuse?: No - Immunizations Immunizations are current?: Yes PD ED PE NORMAL - Vitals Vital signs reviewed: Yes - General General: Alert and oriented X 3, No acute distress, Well developed/nourished - Derm Derm: Normal color, Warm and dry Results - Vitals Vitals: Vital Signs - 24 hr 05/08/23 05/08/23 07:26 08:00 Temperature 36.3 C L 36.5 C Heart Rate 58 L 50 L Respiratory 16 12 Rate Blood Pressure 199/76 H 169/92 H O2 Saturation 99 100 Oxygen O2 Source Room air PD Medical Decision Making - ED course Complexity details: considered differential (unlikley to be signficant ricketsial infection starting. Could be early cellulitic. Or just lokal irritation from a bite. Can cover with Doxycycline as patient is very cocnerned about rickettsial infection, and the doxycyccline would be reasonable for early skin infection.), d/w patient Departure - Departure Disposition: 01 Home, Self Care Clinical Impression: Bite wound of forearm Condition: Stable Record reviewed to determine appropriate education?: Yes Prescriptions: Doxycycline Hyclate 100 mg PO BID 5 Days #10 cap Comments: I do not see any residual foreign body/bug parts in the wound. The small dark specks were small scabs. There is a little bit of warmth in the area and so could consider an early wound infection. We can treat with doxycycline twice daily for the next few days. Recheck if worsening. I sent new prescription to your preferred pharmacy, [facility]. Forms: PCP List Discharge Date/Time: 05/08/23 08:03
[2023-05-08] MEDS ORDERED: DOXYCYCLINE 100 MG TABLET PO STA (07:49)
[2023-05-08 08:01] VITALS: BP 169/92; O2SAT 100
== END 2023-05-08 08:03 | disposition home or self-care (01) ==
LOC: ED 07:20
DX: S50.861A Insect bite (nonvenomous) of right forearm, initial encounter (principal); W57.XXXA Bitten or stung by nonvenomous insect and other nonvenomous arthropods, initial encounter
CPT/HCPCS: 99282; 99283; A9270

== ENCOUNTER 2023-11-21 15:18 | Outpatient (CLI) | payer MEDICARE ==
[2023-11-21 15:32] LABS: BASOPHILS % (AUTO) 0.7 %; EOSINOPHILS # (AUTO) 0.1 10^3/uL (0.0-0.7); EOSINOPHILS % (AUTO) 2.2 %; HCT - HEMATOCRIT 48.7 % (42.0-52.0); HGB - HEMOGLOBIN 15.7 g/dL (14.0-18.0); LYMPHOCYTES # (AUTO) 1.1 10^3/uL (1.5-3.5); LYMPHOCYTES % (AUTO) 24.3 %; MEAN CORPUSCULAR HGB CONC 32.2 g/dL (32.0-36.0); MEAN PLATELET VOLUME 9.2 fL (7.4-11.4); MONOCYTES # (AUTO) 0.4 10^3/uL (0.0-1.0); NEUTROPHILS # (AUTO) 2.9 10^3/uL (1.5-6.6); NEUTROPHILS % (AUTO) 63.6 %; PLT - PLATELET COUNT 166 10^3/uL (130-450); RED BLOOD COUNT 5.41 10^6/uL (4.70-6.10); RED CELL DISTRIBUTION WIDTH 13.2 % (12.0-15.0); WHITE BLOOD COUNT 4.6 x10^3/uL (4.8-10.8)
[2023-11-21 15:33] LABS: BILIRUBIN,URINE NEGATIVE (NEGATIVE); GLUCOSE, URINE (UA) NEGATIVE (NEGATIVE); KETONES,URINE (UA) NEGATIVE (NEGATIVE); LEUKOCYTE ESTERASE, URINE NEGATIVE (NEGATIVE); NITRITE,URINE NEGATIVE (NEGATIVE); OCCULT BLOOD,URINE NEGATIVE (NEGATIVE); PROTEIN,URINE NEGATIVE (NEGATIVE); UROBILINOGEN,URINE 0.2 (NORMAL) E.U./dL (NORMAL)
[2023-11-21 15:39] LABS: BACTERIA,URINE Rare /HPF (None Seen); CLARITY,URINE CLEAR (CLEAR); MUCUS,URINE Few Strands; RBC,URINE None Seen /HPF (0-5); SQUAMOUS EPITHELIAL CELL,UR NONE SEEN (<= Few); WBC,URINE 0-3 /HPF (0-3)
[2023-11-21 15:47] LABS: ALBUMIN 4.3 g/dL (3.2-5.5); ALBUMIN/GLOBULIN RATIO 1.8 (1.0-2.2); ALKALINE PHOSPHATASE 101 IU/L (42-121); ALT ALANINE AMINOTRANSFERASE 12 IU/L (10-60); AST ASPARTATE AMINOTRANSFERASE 9 IU/L (10-42); BILIRUBIN,TOTAL 1.1 mg/dL (0.2-1.0); BUN - BLOOD UREA NITROGEN 18 mg/dL (6-20); CALCIUM 9.6 mg/dL (8.5-10.3); CARBON DIOXIDE - CO2 30 mmol/L (21-32); CHLORIDE 105 mmol/L (101-111); CHOL/HDL RATIO 4.6 (<5.0); CHOLESTEROL 146 mg/dL; CREATININE 0.9 mg/dL (0.6-1.3); GFR - MDRD 82 (>89); GLUCOSE 88 mg/dL (74-104); HDL CHOLESTEROL 32 mg/dL; LDL CHOLESTEROL,CALCULATED 91 mg/dL; LDL/HDL RATIO 2.8 (<3.6); POTASSIUM 4.1 mmol/L (3.5-4.5); SODIUM 139 mmol/L (135-145); TOTAL PROTEIN 6.7 g/dL (6.4-8.9); TRIGLYCERIDES 113 mg/dL (48-352); VLDL CHOLESTEROL 23 mg/dL
[2023-11-21 16:02] LABS: THYROID STIMULATING HORMONE 2.78 uIU/mL (0.34-5.60)
== END 2023-11-21 15:19 | disposition home or self-care (01) ==
LOC: LAB 15:18
PROVIDERS: ATTEND Family Medicine
DX: R80.9 Proteinuria, unspecified (principal)
CPT/HCPCS: 36415; 80053; 80061; 81001; 83721; 84443; 85025

== ENCOUNTER 2024-01-08 19:16 | Outpatient (CLI) | payer MEDICARE ==
--- NOTE | 2024-01-09 14:24 | Ultrasound Report ---
PROCEDURE: Arterial Duplex Lwr Ext BL INDICATIONS: PVD TECHNIQUE: Color and pulse Doppler interrogation was performed of both lower extremity arterial systems, with im age documentation. COMPARISON: None FINDINGS: Exam is markedly limited secondary to patient body habitus. Right lower extremity: Common femoral artery: 131 cm/sec, with triphasic flow. Deep femoral artery: 69.3 cm/sec, with biphasic/triphasic flow. Proximal superficial femoral artery: 141.6 cm/sec, with triphasic flow. Mid superficial femoral artery: 92.7 cm/sec, with biphasic/triphasic flow. Distal superficial femoral artery: 90.4 cm/sec, with triphasic flow. Popliteal artery: 79.3 cm/sec, with biphasic/triphasic flow. Posterior tibial artery: 36.3, 30.4, 125.3 cm/sec, with monophasic flow. Anterior tibial artery/dorsalis pedis: 59.5, 92.2, 81.2, cm/sec, with monophasic flow. Ramirez-scale imaging description: Scattered atherosclerotic plaque Left lower extremity: Common femoral artery: 114.9 cm/sec, with triphasic flow. Deep femoral artery: 69.2 cm/sec, with biphasic flow. Proximal superficial femoral artery: 123 cm/sec, with biphasic flow. Mid superficial femoral artery: 107.4 cm/sec, with biphasic flow. Distal superficial femoral artery: 74.4 cm/sec, with biphasic flow. Popliteal artery: 72.1 cm/sec, with triphasic/biphasic flow. Posterior tibial artery: 148.9, 119.4, 96.8 cm/sec, with monophasic/triphasic/triphasic flow. Anterior tibial artery/dorsalis pedis: 47.3, 133.8, 68.8, 42.7 cm/sec, with biphasic/monophasic/mono phasic/biphasic flow. Ramirez-scale imaging description: Scattered atherosclerotic plaque IMPRESSION: Exam is markedly limited secondary to patient body habitus. 1. Right lower extremity: -Multifocal stenoses in the posterior tibial artery and anterior tibial artery -[id number] arterial vasculature demonstrates multiphasic waveforms with no velocity shift to sug gest a hemodynamically significant stenosis. 2. Left lower extremity: -Multifocal stenoses in the posterior tibial artery and anterior tibial artery -[id number] arterial vasculature demonstrates multiphasic waveforms with no velocity shift to sug gest a hemodynamically significant stenosis. Reviewed by: Tarsha Medel MD on 01/09/2024 2:23 PM PDT Approved by: Tarsha Medel MD on 01/09/2024 2:23 PM PDT Station ID: [id number]
== END 2024-01-08 19:17 | disposition home or self-care (01) ==
LOC: DI 19:16
PROVIDERS: ATTEND Family Medicine
DX: I70.203 Unspecified atherosclerosis of native arteries of extremities, bilateral legs (principal)
CPT/HCPCS: 93925

== ENCOUNTER 2024-04-23 18:01 | Outpatient (CLI) | payer MEDICARE ==
[2024-04-23 18:19] LABS: BASOPHILS % (AUTO) 0.8 %; EOSINOPHILS % (AUTO) 2.9 %; HCT - HEMATOCRIT 48.5 % (42.0-52.0); HGB - HEMOGLOBIN 15.7 g/dL (14.0-18.0); LYMPHOCYTES % (AUTO) 22.8 %; MEAN CORPUSCULAR HEMOGLOBIN 30.1 pg (27.0-31.0); MEAN CORPUSCULAR HGB CONC 32.4 g/dL (32.0-36.0); MEAN CORPUSCULAR VOLUME 92.9 fL (80.0-94.0); MEAN PLATELET VOLUME 9.1 fL (7.4-11.4); MONOCYTES % (AUTO) 7.8 %; NEUTROPHILS % (AUTO) 65.2 %; PLT - PLATELET COUNT 175 10^3/uL (130-450); RED BLOOD COUNT 5.22 10^6/uL (4.70-6.10); RED CELL DISTRIBUTION WIDTH 12.8 % (12.0-15.0); WHITE BLOOD COUNT 6.2 x10^3/uL (4.8-10.8)
[2024-04-23 18:20] LABS: BASOPHILS # (AUTO) 0.1 10^3/uL (0.0-0.1); EOSINOPHILS # (AUTO) 0.2 10^3/uL (0.0-0.7); LYMPHOCYTES # (AUTO) 1.4 10^3/uL (1.5-3.5); MONOCYTES # (AUTO) 0.5 10^3/uL (0.0-1.0)
[2024-04-23 18:38] LABS: ALBUMIN 4.5 g/dL (3.2-5.5); ALBUMIN/GLOBULIN RATIO 1.7 (1.0-2.2); ALKALINE PHOSPHATASE 73 IU/L (42-121); ALT ALANINE AMINOTRANSFERASE 13 IU/L (10-60); AST ASPARTATE AMINOTRANSFERASE 11 IU/L (10-42); BILIRUBIN,TOTAL 0.9 mg/dL (0.2-1.0); BUN - BLOOD UREA NITROGEN 21 mg/dL (6-20); CALCIUM 9.1 mg/dL (8.5-10.3); CARBON DIOXIDE - CO2 28 mmol/L (21-32); CHLORIDE 104 mmol/L (101-111); CHOLESTEROL 147 mg/dL; CREATININE 1.4 mg/dL (0.6-1.3); CRP - C-REACTIVE PROTEIN < 0.5 mg/dL (<0.5); GFR - MDRD 49 (>89); GLUCOSE 84 mg/dL (74-104); HDL CHOLESTEROL 37 mg/dL; LDL CHOLESTEROL,CALCULATED 74 mg/dL; POTASSIUM 4.5 mmol/L (3.5-4.5); SODIUM 138 mmol/L (135-145); TOTAL PROTEIN 7.1 g/dL (6.4-8.9); TRIGLYCERIDES 178 mg/dL; URIC ACID 6.1 mg/dL (4.4-7.6); VLDL CHOLESTEROL 36 mg/dL
[2024-04-23 19:08] LABS: THYROID STIMULATING HORMONE 3.74 uIU/mL (0.34-5.60)
[2024-04-23 19:33] LABS: RHEUMATOID FACTOR NEGATIVE (Negative)
== END 2024-04-23 18:02 | disposition home or self-care (01) ==
LOC: LAB 18:01
PROVIDERS: ATTEND Family Medicine
DX: I10 Essential (primary) hypertension (principal); R63.4 Abnormal weight loss; R51.9 Headache, unspecified; I73.00 Raynaud's syndrome without gangrene
CPT/HCPCS: 36415; 80053; 80061; 83721; 84443; 84550; 85025; 85651; 86038; 86140; 86430